=== PATIENT | male | born 1990 | race Caucasian/White ===

== ENCOUNTER 2017-01-25 08:03 | Emergency (ER) | payer OTHER ==
--- NOTE | 2017-01-25 12:50 | ED NURSING NOTES ---
Clinical Report - Nurses [facility] [address] [place] [address] 01/25/2017 8:08 Patient: TIFFANY GONZALES TRIAGE Triage time 08:26. Acuity: LEVEL 3. Chief Complaint: NAUSEA, VOMITING and DIARRHEA. --08:28 Gautam Samayoa R.N. 08:25 01/25/17. BP: 141/90. HR: 88. RR: 20. O2 saturation: 100%. Temp: 98.4 F. Pain level now 03/01. --08:28 Gautam Samayoa R.N. Weight: 70.3 kg stated. Height/Length: 72 inches Per Patient. BMI: 21. --08:28 Gautam Samayoa R.N. Medications None. --08:26 Gautam Samayoa R.N. Allergies None. --08:26 Gautam Samayoa R.N. History Arrived by private vehicle. Historian: patient. Accompanied by friend. The patient has had nausea, vomiting and diarrhea. 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 SOCIAL HX: Smoker- current status unknown. Alcohol use. No drug use. SELF HARM ASSESSMENT: A self harm assessment was performed. The patient answered "no" to the question "Do you have thoughts of harming or killing yourself?". FALL RISK ASSESSMENT: Fall risk assessment completed. No fall risk identified. NUTRITIONAL RISK ASSESSMENT: The nutritional risk assessment revealed no deficiencies. FUNCTIONAL ASSESSMENT: Functional assessment: no impairments noted. LEARNING NEEDS ASSESSMENT: The learning needs assessment revealed no barriers. SKIN INTEGRITY ASSESSMENT: Skin integrity risk assessment completed. No skin integrity risk identified. --08:28 Gautam Samayoa R.N. Interventions ID band on patient. --08:28 Gautam Samayoa R.N. PHYSICAL ASSESSMENT GENERAL / NEURO / PSYCH: Alert. Oriented X 4. Appears in no acute distress. RESPIRATORY: Respirations not labored. SKIN: Skin is warm and dry. --08:29 Gautam Samayoa R.N. NURSING PROGRESS NOTES Two patient identifiers checked. Call light placed in reach. Bed placed in lowest position. --08:29 Gautam Samayoa R.N. 08:25 01/25/2017 Site #1 started via IV in the left antecubital space with an 20g angiocath; one attempt. Blood drawn: rainbow set. Labeled in the presence of the patient and sent to the lab. Saline lock flushed with 10 mL saline. --08:35 Gemma Prado R.N. 08:37 01/25/2017 Started bag #1 1000 mL IV Fluids IV NS (Saline); at 999 mL/hr over 1 hour(s) via site #1 via IV pump. Allergies verified and confirmed 5 rights. IV patency established. IV site checked: no pain, redness, or swelling. IV flushed thoroughly pre- and post-medication administration. --08:37 Gemma Prado R.N. 10:30 01/25/2017 Started bag #1 1000 mL IV Fluids IV NS (Saline); at 1000 mL/hr over 1 hour(s) via site #1 --10:35 Gautam Samayoa R.N. 10:45 01/25/17. BP: 123/76. HR: 65. RR: 12. O2 saturation: 99% on room air. --10:45 Gemma Prado R.N. 10:46 01/25/2017 Zofran (Ondansetron HCl) IVP 8 mg given over 2 minute(s) via site #1. Allergies verified and confirmed 5 rights. IV patency established. IV site checked: no pain, redness, or swelling. IV flushed thoroughly pre- and post-medication administration. IVP given by RN. --10:46 Gemma Prado R.N. 10:50 01/25/17. Reassessment after fluids administered. He reports no complaints and he is calm and resting quietly. Overall patient status is improved- he states feels better. GI / : Denies vomiting. --10:50 Gemma Prado R.N. 10:52 01/25/17. BP: 121/82. HR: 70. RR: 18. Temp: 98.2 F. --10:53 Gautam Samayoa R.N. 09:53 01/25/2017 IV Fluids IV NS Discontinued: bag #1. Total amount infused: 1000 mL. --11:53 Gautam Samayoa R.N. 11:30 01/25/2017 IV Fluids IV NS Discontinued: bag #2 infused. Total amount infused: 1000 mL. --12:58 Gautam Samayoa R.N. 11:41 01/25/2017 Started bag #1 1000 mL IV Fluids IV NS (Saline); at 1000 mL/hr over 1 hour(s) via site #1 via IV pump. --11:56 Gautam Samayoa R.N. 12:48 01/25/2017 IV Fluids IV NS Discontinued: bag #3 infused. Total amount infused: 1000 mL. --12:58 Gautam Samayoa R.N. Intake & Output IV fluids: 3000. Urine, with return of 200 mL zaid-colored urine. --12:44 Gautam Samayoa R.N. DISPOSITION / DISCHARGE Condition at departure: improved. No learning barriers present. Discharge instructions provided and reviewed with the patient. Patient verbalized understanding. The patient was discharged by the physician. He was discharged home. --12:54 Gautam Samayoa R.N. 12:44 01/25/17. BP: 134/70. HR: 68. RR: 18. O2 saturation: 100%. Temp: 98.6 F. Pain level now 5/10. --12:54 Gautam Samayoa R.N. Locked/Released at 01/25/2017 12:59 by Gautam Samayoa R.N.
--- NOTE | 2017-01-25 12:50 | ED CLINICAL REPORT ---
Clinical Report - Physicians/Mid Levels [facility] [address] [place] [address] 01/25/2017 8:08 Patient: TIFFANY GONZALES Time Seen: 09:04. Arrived- By private vehicle. Historian- patient. HISTORY OF PRESENT ILLNESS Chief Complaint: VOMITING and DIARRHEA. This started last night and is still present. It was abrupt in onset. The patient has had vomiting (20 plus times). The vomiting has been blood-tinged. He has had diarrhea (4 - 5 times). No black stools or bloody stools. He has had abdominal pain and contact with a sick individual. Has recently been camping ([employer] [place] ([place] city [place]). Possible bad food exposure. Last bowel movement: recently. The illness is described as severe. Similar symptoms previously: None. REVIEW OF SYSTEMS No fever, muscle aches, difficulty with urination, headache or sore throat. No cough, chest pain, difficulty breathing, excessive urination or skin rash. No jaundice, back pain or blurred vision. PAST HISTORY PCP: None Hosp: None Ops: None Illness: None. SOCIAL HISTORY Smoker - current status unknown. ADDITIONAL NOTES The nursing notes have been reviewed. PHYSICAL EXAM Vital Signs: 01/25/2017 12:44 BP: 134/70. HR: 68. RR: 18. O2 saturation: 100%. Temp: 98.6 F. 01/25/2017 10:52 BP: 121/82. HR: 70. RR: 18. Temp: 98.2 F. 01/25/2017 10:45 BP: 123/76. HR: 65. RR: 12. O2 saturation: 99%. 01/25/2017 08:25 BP: 141/90. HR: 88. RR: 20. O2 saturation: 100%. Temp: 98.4 F. Appearance: Alert. Patient in moderate distress. Eyes: Eyes normal inspection. No scleral icterus. ENT: Pharynx normal. CVS: Heart sounds normal. Respiratory: No respiratory distress. Breath sounds normal. Abdomen: Mild tenderness diffusely. Bowel sounds normal. No mass. No rebound tenderness or guarding. Back: Normal inspection. Skin: Skin warm. Normal skin color. Extremities: Extremities exhibit normal ROM. No lower extremity edema. PROGRESS AND PROCEDURES Course of Care: 10:49 01/25/17. Feeling better after the first liter Required two more liters (3 L total) in order to urinate moderate volumes. This does not appear to be an acute surgical abdomen. This is most consistent with a gastroenteritis with volume depletion. Disposition: Discharged. Condition: stable. CLINICAL IMPRESSION Acute gastroenteritis with volume depletion. INSTRUCTIONS Do not work today, tomorrow. (Gatoraide or oral rehydration solution RECHECK IN ED IN 12 HOURS IF NOT KEEPING FLUIDS DOWN OR IF STILL IN SIGNIFICANT PAIN BY THEN.). Prescription Medications: Zofran (orally disintegrating tablets) 4 mg: every 8 hours as needed for nausea. Dispense ten (10). Understanding of the discharge instructions verbalized by patient. (Electronically signed by Chapincito Logan MD 01/28/2017 6:45)
--- NOTE | 2017-01-25 12:50 | ED ORDER SUMMARY ---
..... Patient: TIFFANY GONZALES OrderSheet [facility] VisitID: [id number] [address] [place] [address] 26y, M Registration Date/Time: 01/25/2017 ORDER SHEET Weight: 70.3 kg (stated) Allergies: None GENERAL ORDERS: MEDICATION ORDERS: IV FLUIDS: IV NS : initial bolus none -, then 1000 mL/hr (NOW) (08:35 01/25/2017 MWinterer R.N. per protocol) (8:37 MWinterer R.N.) IV NS : initial bolus none -, then 1000 mL/hr for 1h (NOW); Urgent (10:32 01/25/2017 Kt SALEEM) (10:35 GMarshall R.N.) Zofran IV 8 mg (NOW) (10:39 01/25/2017 Kt SALEEM) (Ack 10:42 MWinterer R.N.) (10:46 MWinterer R.N.) IV NS : initial bolus 1000 mL (1000 mL/hr), then 1000 mL/hr (NOW) (11:55 01/25/2017 GMarshall R.N. verbal order read back to Kt SALEEM) (11:56 GMarshall R.N.) ORDER SHEET NOTES: [Electronically signed by Gautam Samayoa R.N. (12:59 01/25/2017)] [Electronically signed by Chapincito Logan MD (06:45 01/28/2017)] [Electronically locked/signed by Gautam Samayoa R.N. (12:59 01/25/2017)]
--- NOTE | 2017-01-25 12:50 | ED CLINICAL REPORT ---
Clinical Report - Physicians/Mid Levels [facility] [address] [place] [address] 01/25/2017 8:08 Patient: TIFFANY GONZALES Time Seen: 09:04. Arrived- By private vehicle. Historian- patient. HISTORY OF PRESENT ILLNESS Chief Complaint: VOMITING and DIARRHEA. This started last night and is still present. It was abrupt in onset. The patient has had vomiting (20 plus times). The vomiting has been blood-tinged. He has had diarrhea (4 - 5 times). No black stools or bloody stools. He has had abdominal pain and contact with a sick individual. Has recently been camping ([email or web address]) (Non city water). Possible bad food exposure. Last bowel movement: recently. The illness is described as severe. Similar symptoms previously: None. REVIEW OF SYSTEMS No fever, muscle aches, difficulty with urination, headache or sore throat. No cough, chest pain, difficulty breathing, excessive urination or skin rash. No jaundice, back pain or blurred vision. PAST HISTORY PCP: None Hosp: None Ops: None Illness: None. SOCIAL HISTORY Smoker - current status unknown. ADDITIONAL NOTES The nursing notes have been reviewed. PHYSICAL EXAM Vital Signs: 01/25/2017 12:44 BP: 134/70. HR: 68. RR: 18. O2 saturation: 100%. Temp: 98.6 F. 01/25/2017 10:52 BP: 121/82. HR: 70. RR: 18. Temp: 98.2 F. 01/25/2017 10:45 BP: 123/76. HR: 65. RR: 12. O2 saturation: 99%. 01/25/2017 08:25 BP: 141/90. HR: 88. RR: 20. O2 saturation: 100%. Temp: 98.4 F. Appearance: Alert. Patient in moderate distress. Eyes: Eyes normal inspection. No scleral icterus. ENT: Pharynx normal. CVS: Heart sounds normal. Respiratory: No respiratory distress. Breath sounds normal. Abdomen: Mild tenderness diffusely. Bowel sounds normal. No mass. No rebound tenderness or guarding. Back: Normal inspection. Skin: Skin warm. Normal skin color. Extremities: Extremities exhibit normal ROM. No lower extremity edema. PROGRESS AND PROCEDURES Course of Care: 10:49 01/25/17. Feeling better after the first liter Required two more liters (3 L total) in order to urinate moderate volumes. This does not appear to be an acute surgical abdomen. This is most consistent with a gastroenteritis with volume depletion. Disposition: Discharged. Condition: stable. CLINICAL IMPRESSION Acute gastroenteritis with volume depletion. INSTRUCTIONS Do not work today, tomorrow. (Gatoraide or oral rehydration solution RECHECK IN ED IN 12 HOURS IF NOT KEEPING FLUIDS DOWN OR IF STILL IN SIGNIFICANT PAIN BY THEN.). Prescription Medications: Zofran (orally disintegrating tablets) 4 mg: every 8 hours as needed for nausea. Dispense ten (10). Understanding of the discharge instructions verbalized by patient. (Electronically signed by Chapincito Logan MD 01/28/2017 6:45)
--- NOTE | 2017-01-25 12:50 | ED ORDER SUMMARY ---
..... Patient: TIFFANY GONZALES OrderSheet [facility] VisitID: [id number] [address] [place] [address] 26y, M Registration Date/Time: 01/25/2017 ORDER SHEET Weight: 70.3 kg (stated) Allergies: None GENERAL ORDERS: MEDICATION ORDERS: IV FLUIDS: IV NS : initial bolus none -, then 1000 mL/hr (NOW) (08:35 01/25/2017 MWinterer R.N. per protocol) (8:37 MWinterer R.N.) IV NS : initial bolus none -, then 1000 mL/hr for 1h (NOW); Urgent (10:32 01/25/2017 Kt SALEEM) (10:35 GMarshall R.N.) Zofran IV 8 mg (NOW) (10:39 01/25/2017 Kt SALEEM) (Ack 10:42 MWinterer R.N.) (10:46 MWinterer R.N.) IV NS : initial bolus 1000 mL (1000 mL/hr), then 1000 mL/hr (NOW) (11:55 01/25/2017 GMarshall R.N. verbal order read back to Kt SALEEM) (11:56 GMarshall R.N.) ORDER SHEET NOTES: [Electronically signed by Gautam Samayoa R.N. (12:59 01/25/2017)] [Electronically signed by Chapincito Logan MD (06:45 01/28/2017)] [Electronically locked/signed by Gautam Samayoa R.N. (12:59 01/25/2017)]
--- NOTE | 2017-01-28 06:46 | ED MED RECONCILIATION SUMMARY ---
Patient: TIFFANY GONZALES Medication Reconciliation Report [facility] VisitID: [id number] [address] [place] [address] 26y, M Registration Date/Time: 01/25/2017 Weight: 70.3 kg Height/Length: 72 in. BMI: 21.0 ALLERGIES: None The patient's Home Medications are listed below: NONE. The source(s) of the original Home Medication information: Not obtained. The following Medications were given to the patient in the Emergency Department: IV NS IV Fluids bolus 0, then 999 mL/hr, administered: 01/25/2017 8:37:00 AM IV NS IV Fluids bolus 0, then 1000 mL/hr, administered: 01/25/2017 10:30:00 AM Zofran [IVP] IVP 8 mg, administered: 01/25/2017 10:46:00 AM IV NS IV Fluids bolus 0, then 1000 mL/hr, administered: 01/25/2017 11:41:00 AM The following Medications were prescribed to the patient: Zofran (orally disintegrating tablets) 4 mg: every 8 hours as needed for nausea. Dispense ten (10). -- Chapincito Logan MD
--- NOTE | 2017-01-28 06:46 | ED MAR SUMMARY ---
..... Medication Administration Record [facility] [address] [place] [address] Patient: TIFFANY GONZALES Visit ID: [id number] 26y, M Weight: 70.3 kg Height/Length: 72 in BMI: 21 ALLERGIES: None Start 08:37 01/25/2017 Gemma Prado R.N., Stop 09:53 01/25/2017 Gautam Samayoa R.N. Medication Administered: IV NS (SALINE), Dose: IV Fluids over 1 hour(s), Rate: 999 mL/hr, Dispensed: 1000 mL bag, Site: #1 left AC. Medication Ordered: IV NS : initial bolus none -, then 1000 mL/hr (NOW). Start 10:30 01/25/2017 Gautam Samayoa R.N., Stop 11:30 01/25/2017 Gautam Samayoa R.N. Medication Administered: IV NS (SALINE), Dose: IV Fluids over 1 hour(s), Rate: 1000 mL/hr, Dispensed: 1000 mL bag, Site: #1 left AC. Medication Ordered: IV NS : initial bolus none -, then 1000 mL/hr for 1h (NOW); Urgent. Given 10:46 01/25/2017 Gemma Prado R.N. Medication Administered: ZOFRAN [IVP] (ONDANSETRON HCL), Dose: 8 mg IVP over 2 minute(s), Site: #1 left AC. Medication Ordered: Zofran IV 8 mg (NOW). Start 11:41 01/25/2017 Gautam Samayoa R.N., Stop 12:48 01/25/2017 Gautam Samayoa R.N. Medication Administered: IV NS (SALINE), Dose: IV Fluids over 1 hour(s), Rate: 1000 mL/hr, Dispensed: 1000 mL bag, Site: #1 left AC. Medication Ordered: IV NS : initial bolus 1000 mL (1000 mL/hr), then 1000 mL/hr (NOW).
--- NOTE | 2017-01-28 06:46 | ED MAR SUMMARY ---
..... Medication Administration Record [facility] [address] [place] [address] Patient: TIFFANY GONZALES Visit ID: [id number] 26y, M Weight: 70.3 kg Height/Length: 72 in BMI: 21 ALLERGIES: None Start 08:37 01/25/2017 Gemma Prado R.N., Stop 09:53 01/25/2017 Gautam Samayoa R.N. Medication Administered: IV NS (SALINE), Dose: IV Fluids over 1 hour(s), Rate: 999 mL/hr, Dispensed: 1000 mL bag, Site: #1 left AC. Medication Ordered: IV NS : initial bolus none -, then 1000 mL/hr (NOW). Start 10:30 01/25/2017 Gautam Samayoa R.N., Stop 11:30 01/25/2017 Gautam Samayoa R.N. Medication Administered: IV NS (SALINE), Dose: IV Fluids over 1 hour(s), Rate: 1000 mL/hr, Dispensed: 1000 mL bag, Site: #1 left AC. Medication Ordered: IV NS : initial bolus none -, then 1000 mL/hr for 1h (NOW); Urgent. Given 10:46 01/25/2017 Gemma Prado R.N. Medication Administered: ZOFRAN [IVP] (ONDANSETRON HCL), Dose: 8 mg IVP over 2 minute(s), Site: #1 left AC. Medication Ordered: Zofran IV 8 mg (NOW). Start 11:41 01/25/2017 Gautam Samayoa R.N., Stop 12:48 01/25/2017 Gautam Samayoa R.N. Medication Administered: IV NS (SALINE), Dose: IV Fluids over 1 hour(s), Rate: 1000 mL/hr, Dispensed: 1000 mL bag, Site: #1 left AC. Medication Ordered: IV NS : initial bolus 1000 mL (1000 mL/hr), then 1000 mL/hr (NOW).
--- NOTE | 2017-01-28 06:46 | ED MED RECONCILIATION SUMMARY ---
Patient: TIFFANY GONZALES Medication Reconciliation Report [facility] VisitID: [id number] [address] [place] [address] 26y, M Registration Date/Time: 01/25/2017 Weight: 70.3 kg Height/Length: 72 in. BMI: 21.0 ALLERGIES: None The patient's Home Medications are listed below: NONE. The source(s) of the original Home Medication information: Not obtained. The following Medications were given to the patient in the Emergency Department: IV NS IV Fluids bolus 0, then 999 mL/hr, administered: 01/25/2017 8:37:00 AM IV NS IV Fluids bolus 0, then 1000 mL/hr, administered: 01/25/2017 10:30:00 AM Zofran [IVP] IVP 8 mg, administered: 01/25/2017 10:46:00 AM IV NS IV Fluids bolus 0, then 1000 mL/hr, administered: 01/25/2017 11:41:00 AM The following Medications were prescribed to the patient: Zofran (orally disintegrating tablets) 4 mg: every 8 hours as needed for nausea. Dispense ten (10). -- Chapincito Logan MD
--- NOTE | 2017-01-28 06:46 | ED DISCHARGE INSTRUCTIONS ---
Patient: TIFFANY GONZALES General Instructions [facility] VisitID: [id number] [place] [address] 26y, M Registration Date/Time: 01/25/2017 Acute gastroenteritis with volume depletion. INSTRUCTIONS Do not work today, tomorrow. (Gatoraide or oral rehydration solution RECHECK IN ED IN 12 HOURS IF NOT KEEPING FLUIDS DOWN OR IF STILL IN SIGNIFICANT PAIN BY THEN.). Prescription Medications: Zofran (orally disintegrating tablets) 4 mg: every 8 hours as needed for nausea. Dispense ten (10). Understanding of the discharge instructions verbalized by patient. ADDITIONAL INFORMATION Dehydration (Adult) Dehydration occurs when your body loses too much fluid. This may be the result of vomiting a lot or from diarrhea,sweating a lot, or a high fever. It may also happen if you dont drink enough fluid when youre sick. Misuse of diuretics (water pills) can also be a cause. Symptoms include thirst and feeling dizzy, weak, fatigued, or very drowsy. The diet described below is usually enough to treat most cases. Sometimes you may needmedicine. Home Care Follow these guidelines for home care: Drink at least 12 8-ounce glasses of fluid every day to overcome the dehydration. Fluid may include water; orange juice; lemonade; apple, grape, and cranberry juice; clear fruit drinks; electrolyte replacement and sports drinks; and teas and coffee without caffeine. If you have been diagnosed with a kidney disease, ask your doctor how much and what types of fluids you should drink to prevent dehydration. If you have kidney disease, drinking too much fluid can cause it build up in the your body and be dangerous to your health. If you have fever, muscle aching, or headache from a viral syndrome, you may useacetaminophen or ibuprofen, unless another medicine was prescribed for this.If you have chronic liver or kidney disease or ever had a stomach ulcer or GI bleeding, talk with your doctor before using these medicines. Don't take aspirin if you are younger than 18 and are ill with a fever.Aspirin raises the chance forsevere liver injury. Follow-up care Follow up with your health care provider if you don't get better in the next 24 to 48 hours. When to seek medical care Get prompt medical attention if any of theseoccur: Continued vomiting (cant keep liquids down) Frequent diarrhea (more than 5 times a day); blood (red or black color) or mucus in diarrhea Blood in vomit or stool Swollen abdomen or increasing abdominal pain Weakness, dizziness, or fainting Unusually drowsy or confused Reduced urine output or extreme thirst Fever of 100.4 F (38 C) oral or higher that does not get better with fever medication Ondansetron Oral disintegrating tablet What is this medicine? ONDANSETRON (on TIFFANI se ode) is used to treat nausea and vomiting caused by chemotherapy. It is also used to prevent or treat nausea and vomiting after surgery. How should I use this medicine? These tablets are made to dissolve in the mouth. Do not try to push the tablet through the foil backing. With dry hands, peel away the foil backing and gently remove the tablet. Place the tablet in the mouth and allow it to dissolve, then swallow. While you may take these tablets with water, it is not necessary to do so. Talk to your retort operator regarding the use of this medicine in children. Special care may be needed. What side effects may I notice from receiving this medicine? Side effects that you should report to your doctor or health primary care md as soon as possible: allergic reactions like skin rash, itching or hives, swelling of the face, lips, or tongue breathing problems dizziness fast or irregular heartbeat feeling faint or lightheaded, falls fever and chills swelling of the hands and feet tightness in the chest Side effects that usually do not require medical attention (report to your doctor or health primary care md if they continue or are bothersome): constipation or diarrhea headache What may interact with this medicine? Do not take this medicine with any of the following medications: -apomorphine -cisapride -dofetilide -dronedarone -pimozide -thioridazine -ziprasidone This medicine may also interact with the following medications: -carbamazepine -phenytoin -rifampicin -tramadol -other medicines that prolong the QT interval (cause an abnormal heart rhythm) What if I miss a dose? If you miss a dose, take it as soon as you can. If it is almost time for your next dose, take only that dose. Do not take double or extra doses. Where should I keep my medicine? Keep out of the reach of children. Store between 2 and 30 degrees C (36 and 86 degrees F). Throw away any unused medicine after the expiration date. What should I tell my health care provider before I take this medicine? They need to know if you have any of these conditions: heart disease history of irregular heartbeat liver disease low levels of magnesium or potassium in the blood an unusual or allergic reaction to ondansetron, granisetron, other medicines, foods, dyes, or preservatives or trying to get breast-feeding What should I watch for while using this medicine? Check with your doctor or health primary care md as soon as you can if you have any sign of an allergic reaction. You have been given the following additional information: Dehydration (Adult) Ondansetron Oral disintegrating tablet Do not work today, tomorrow. (Electronically signed by Chapincito Logan MD 01/28/2017 6:45)
--- NOTE | 2017-01-28 06:46 | ED DISCHARGE INSTRUCTIONS ---
Patient: TIFFANY GONZALES General Instructions [facility] VisitID: [id number] [place] [address] 26y, M Registration Date/Time: 01/25/2017 Acute gastroenteritis with volume depletion. INSTRUCTIONS Do not work today, tomorrow. (Gatoraide or oral rehydration solution RECHECK IN ED IN 12 HOURS IF NOT KEEPING FLUIDS DOWN OR IF STILL IN SIGNIFICANT PAIN BY THEN.). Prescription Medications: Zofran (orally disintegrating tablets) 4 mg: every 8 hours as needed for nausea. Dispense ten (10). Understanding of the discharge instructions verbalized by patient. ADDITIONAL INFORMATION Dehydration (Adult) Dehydration occurs when your body loses too much fluid. This may be the result of vomiting a lot or from diarrhea,sweating a lot, or a high fever. It may also happen if you dont drink enough fluid when youre sick. Misuse of diuretics (water pills) can also be a cause. Symptoms include thirst and feeling dizzy, weak, fatigued, or very drowsy. The diet described below is usually enough to treat most cases. Sometimes you may needmedicine. Home Care Follow these guidelines for home care: Drink at least 12 8-ounce glasses of fluid every day to overcome the dehydration. Fluid may include water; orange juice; lemonade; apple, grape, and cranberry juice; clear fruit drinks; electrolyte replacement and sports drinks; and teas and coffee without caffeine. If you have been diagnosed with a kidney disease, ask your doctor how much and what types of fluids you should drink to prevent dehydration. If you have kidney disease, drinking too much fluid can cause it build up in the your body and be dangerous to your health. If you have fever, muscle aching, or headache from a viral syndrome, you may useacetaminophen or ibuprofen, unless another medicine was prescribed for this.If you have chronic liver or kidney disease or ever had a stomach ulcer or GI bleeding, talk with your doctor before using these medicines. Don't take aspirin if you are younger than 18 and are ill with a fever.Aspirin raises the chance forsevere liver injury. Follow-up care Follow up with your health care provider if you don't get better in the next 24 to 48 hours. When to seek medical care Get prompt medical attention if any of theseoccur: Continued vomiting (cant keep liquids down) Frequent diarrhea (more than 5 times a day); blood (red or black color) or mucus in diarrhea Blood in vomit or stool Swollen abdomen or increasing abdominal pain Weakness, dizziness, or fainting Unusually drowsy or confused Reduced urine output or extreme thirst Fever of 100.4 F (38 C) oral or higher that does not get better with fever medication Ondansetron Oral disintegrating tablet What is this medicine? ONDANSETRON (on TIFFANI se doe) is used to treat nausea and vomiting caused by chemotherapy. It is also used to prevent or treat nausea and vomiting after surgery. How should I use this medicine? These tablets are made to dissolve in the mouth. Do not try to push the tablet through the foil backing. With dry hands, peel away the foil backing and gently remove the tablet. Place the tablet in the mouth and allow it to dissolve, then swallow. While you may take these tablets with water, it is not necessary to do so. Talk to your mat packer regarding the use of this medicine in children. Special care may be needed. What side effects may I notice from receiving this medicine? Side effects that you should report to your doctor or health career technology teacher as soon as possible: allergic reactions like skin rash, itching or hives, swelling of the face, lips, or tongue breathing problems dizziness fast or irregular heartbeat feeling faint or lightheaded, falls fever and chills swelling of the hands and feet tightness in the chest Side effects that usually do not require medical attention (report to your doctor or health career technology teacher if they continue or are bothersome): constipation or diarrhea headache What may interact with this medicine? Do not take this medicine with any of the following medications: -apomorphine -cisapride -dofetilide -dronedarone -pimozide -thioridazine -ziprasidone This medicine may also interact with the following medications: -carbamazepine -phenytoin -rifampicin -tramadol -other medicines that prolong the QT interval (cause an abnormal heart rhythm) What if I miss a dose? If you miss a dose, take it as soon as you can. If it is almost time for your next dose, take only that dose. Do not take double or extra doses. Where should I keep my medicine? Keep out of the reach of children. Store between 2 and 30 degrees C (36 and 86 degrees F). Throw away any unused medicine after the expiration date. What should I tell my health care provider before I take this medicine? They need to know if you have any of these conditions: heart disease history of irregular heartbeat liver disease low levels of magnesium or potassium in the blood an unusual or allergic reaction to ondansetron, granisetron, other medicines, foods, dyes, or preservatives or trying to get breast-feeding What should I watch for while using this medicine? Check with your doctor or health career technology teacher as soon as you can if you have any sign of an allergic reaction. You have been given the following additional information: Dehydration (Adult) Ondansetron Oral disintegrating tablet Do not work today, tomorrow. (Electronically signed by Chapincito Logan MD 01/28/2017 6:45)
== END 2017-01-25 12:50 | disposition home or self-care (01) ==
LOC: ED SRH 08:03
DX: K52.9 Noninfective gastroenteritis and colitis, unspecified (principal); E86.9 Volume depletion, unspecified